=== PATIENT | male | born 1970 | race Hispanic/Latino ===

== ENCOUNTER 2017-05-12 07:36 | Day surgery (SDC) | payer OTHER ==
[2017-05-09 13:08] VITALS: BMI 35.2
[2017-05-12 08:40] LABS: Hemoglobin 13.6 g/dL (14.0-18.0); Mean Corpuscular HGB CONC 33.9 g/dL (32.0-36.0); Mean Corpuscular Hemoglobin 32.1 pg (27.0-31.0); Mean Corpuscular Volume 94.8 fl (80.0-94.0); Mean Platelet Volume 7.6 fL (7.4-10.4); Platelet Count 207 thou/uL (130-400); RBC Distribution Width 11.5 % (11.5-14.5); Red Blood Cell (RBC) Count 4.23 mill/uL (4.70-6.10); White Blood Cell (WBC) Count 5.3 thou/uL (4.8-10.8)
[2017-05-12] MEDS ORDERED: CEFAZOLIN/Water 2 GM/20 ML SYRINGE ONE (08:40)
[2017-05-12 09:04] LABS: Anion Gap 9 mmol/L (10-20); BUN (Urea Nitrogen) 15 mg/dL (8.9-20.6); Calc. Creatinine Clearance 151 mL/min (70-130); Calcium 9.1 mg/dL (7.8-10.44); Carbon Dioxide 27 mmol/L (22-29); Chloride 106 mmol/L (98-107); Estimated GFR-MDRD 84; Glucose 105 mg/dL (70-105); Potassium 3.9 mmol/L (3.5-5.1); Sodium 138 mmol/L (136-145)
[2017-05-12] MEDS ORDERED: Sodium Chloride 0.9% 10 ML ONE (10:38)
[2017-05-12] MEDS ORDERED: Fentanyl 100 MCG/2 ML VIAL ONE ×2 (10:47→12:39)
[2017-05-12] MEDS ORDERED: Midazolam HCl 2 mg/2 ml Vial ONE (11:00)
--- NOTE | 2017-05-12 13:55 | OP ---
DATE OF PROCEDURE: 05/12/2017 SURGEON: Darin Mckeon M.D. DRY MAN: Jeffery Hoang PROCEDURE: Anterior cervical diskectomy C6-7, interbody arthrodesis, intravertebral biomechanical de vice, local morselized autograft, demineralized bone matrix, anterior titanium instrumentation C6-7. PROCEDURE IN DETAIL: The patient was brought into the operating room, intubated. He was positioned supine with the head in modest extension on a gel-filled donut. Incision was made in the right prece rvical area and dissecting medial to the sternocleidomastoid muscle. We identified the anterior cerv ical spine and our level was confirmed by x-ray. We placed distraction across the disc space and usi ng the operating microscope and microdissection techniques, completely decompressed the intravertebra l disc from foramen to foramen, completely decompressing the neural elements. The bony endplates wer e then decorticated for the purpose of arthrodesis and appropriately sized intravertebral biomechanic al PEEK device was brought into the field, filled with demineralized bone matrix and local morselized autograft, and tapped into place securely at C6-7. Next, an anterior plate was brought in the field and secured to C6 and C7 using two 14 mm screws at each level. The wound was then extensively irrig ated, immaculate hemostasis was secured, and the wound was closed in anatomic layers.
[2017-05-12] MEDS ORDERED: HYDROcodone/Acetaminophen 5/325 mg Tablet ONE ×2 (14:32→16:52)
[2017-05-12] MEDS ORDERED: Ondansetron HCl/PF 4 MG/2 ML Vial ONE (15:28)
[2017-05-12] MEDS ORDERED: PROPOFOL 200 MG/20 ML VIAL ONE (15:28)
[2017-05-12] MEDS ORDERED: Lidocaine 1% PF 5 ML VIAL ONE (15:28)
[2017-05-12] MEDS ORDERED: Dexamethasone 20 MG/5 ML VIAL ONE (15:28)
[2017-05-12] MEDS ORDERED: Glycopyrrolate 0.2 MG/ML 5 ML SYRINGE ONE (15:28)
--- NOTE | 2017-05-13 06:32 | EKG ---
Test Reason : PREOP Blood Pressure : / mmHG Vent. Rate : 050 BPM Atrial Rate : 050 BPM P-R Int : 186 ms QRS Dur : 108 ms QT Int : 432 ms P-R-T Axes : 040 044 016 degrees QTc Int : 393 ms Sinus bradycardia Otherwise normal ECG No previous ECGs available Confirmed by DARLENE HORN ([id number] on 05/13/2017 6:32:19 AM Referred By: ANNA Confirmed By:DARLENE HORN
== END 2017-05-12 17:30 | disposition home or self-care (01) ==
LOC: SDC 07:36 → EDSEX 07:36 → SDC 17:30
PROVIDERS: ATTEND Neurological Surgery
PROC: 0RG20A0 Fusion of 2 or more Cervical Vertebral Joints with Interbody Fusion Device, Anterior Approach, Anterior Column, Open Approach (ICD-10-PCS; principal; 2017-05-12)
DX: M54.12 Radiculopathy, cervical region (principal)
CPT/HCPCS: 36415; 76001; 80048; 85027; 93005; 93010; A4216; C1713; C1776; J1100; J2001; J2250; J2405; J2704; J3010; J3490

== ENCOUNTER 2017-05-27 10:15 | Outpatient (CLI) | payer OTHER ==
--- NOTE | 2017-05-27 12:20 | RAD ---
CERVICAL SPINE 3 VIEWS: Date: 05/27/17 HISTORY: Neck pain. FINDINGS: Cervical vertebra maintain normal height and alignment. Anterior plate and screws are seen transfixin g C6-7 with interbody implant in place, which appears adequately positioned. Posterior alignment is p reserved. Mild degenerative change noted. IMPRESSION: Postop anterior fusion procedure at C6-7 as described above. POS: [facility]
== END 2017-05-27 10:16 | disposition home or self-care (01) ==
LOC: RAD 10:15 → TBSIIMAG 10:16
PROVIDERS: ATTEND Physician Assistant
DX: M54.2 Cervicalgia (principal); Z98.1 Arthrodesis status
CPT/HCPCS: 72040

== ENCOUNTER 2017-07-10 13:55 | Outpatient (CLI) | payer OTHER ==
--- NOTE | 2017-07-10 15:00 | RAD ---
CERVICAL SPINE THREE VIEWS: History: Follow up cervical spine surgery. Comparison: 05-27-17 FINDINGS: Anterior plate and screws transfix C6-7 with interbody implant at this level. The implant and hardwar e are unchanged in position. Posterior alignment is preserved. No change from the prior exam. IMPRESSION: Stable post op changes. POS: [facility]
== END 2017-07-10 13:56 | disposition home or self-care (01) ==
LOC: TBSIIMAG 13:55
PROVIDERS: ATTEND Neurological Surgery
DX: M50.30 Other cervical disc degeneration, unspecified cervical region (principal); Z98.1 Arthrodesis status
CPT/HCPCS: 72040